=== PATIENT | male | born 1990 | race Hispanic/Latino ===

== ENCOUNTER 2017-06-22 08:52 | Day surgery (SDC) | payer MEDICAID ==
[~2017-06-22] VITALS: Ht 185.4 cm; Wt 140.4 kg
[~2017-06-22 08:52] MED LIST: ATOR10TA69 PO; BUSP7.5T7 PO; CETI10TA86 PO; INSU100C6 SQ; LACT1CAP78 PO; LISI-613 PO; METF-526 PO; METF500T6 PO; METO50TA18 PO; MULT-1296 PO; RANI150C4 PO; SODIUM CHLORIDE 0.9% 1000ML 1,000 ML IV ONE
[2017-06-22 09:43] VITALS: BP 133/76
[2017-06-22] MEDS ORDERED: PROPOFOL 10 MG/ML 20ML VIAL IV ONE (10:23)
[2017-06-22 10:38] VITALS: BP 116/59
== END 2017-06-22 11:00 | disposition home or self-care (01) ==
LOC: DAH 08:52
PROVIDERS: ATTEND Internal Medicine
DX: K29.50 Unspecified chronic gastritis without bleeding (principal); K21.9 Gastro-esophageal reflux disease without esophagitis; I10 Essential (primary) hypertension; E78.5 Hyperlipidemia, unspecified; F41.9 Anxiety disorder, unspecified; F32.9 Major depressive disorder, single episode, unspecified; E11.9 Type 2 diabetes mellitus without complications; Z95.5 Presence of coronary angioplasty implant and graft; Z79.84 Long term (current) use of oral hypoglycemic drugs; Z79.4 Long term (current) use of insulin; Z68.41 Body mass index [BMI] 40.0-44.9, adult
CPT/HCPCS: 43239; 82948 ×2; 88305; 88313; 88342; A4606; J2704; J7030